=== PATIENT | female | born 1955 | race Caucasian/White ===

== ENCOUNTER 2021-04-27 13:31 | Inpatient (IN) | payer OTHER ==
[2021-04-27] MEDS ORDERED: ASPIRIN 81 MG CHEWABLE TABLETS PO ONE ×2 (14:16→15:12)
[2021-04-27] MEDS ORDERED: ASPIRIN 81 MG CHEWABLE TABLETS ONE ×2 (14:48→16:48)
[2021-04-27 15:24] LABS: BASO % 2.1 % (0-2.0); HEMATOCRIT 43.9 % (32.4-45.2); HEMOGLOBIN 15.1 GM/dL (10.7-15.3); MCH 35.4 pg (25.7-33.7); MCHC 34.4 g/dl (32.0-36.0); MEAN CELL VOLUME 102.8 fl (80-96); MEAN PLT VOLUME 8.5 fl (7.5-11.1); MONO % 8.2 % (3.8-10.2); NEUT % 56.7 % (42.8-82.8); PLATELET COUNT 238 10^3/uL (134-434); RBC 4.27 M/mm3 (3.60-5.2); WHITE BLOOD COUNT 11.6 K/mm3 (4.0-10.0)
[2021-04-27 15:43] LABS: ALBUMIN 3.9 g/dl (3.4-5.0); BLOOD UREA NITROGEN 15.8 mg/dL (7-18); MAGNESIUM 2.2 mg/dL (1.8-2.4)
[2021-04-27 15:46] LABS: CREATININE 0.8 mg/dL (0.55-1.3)
[2021-04-27 15:48] LABS: BILIRUBIN,TOTAL 0.4 mg/dL (0.2-1); TOT PROT 7.4 g/dl (6.4-8.2)
[2021-04-27 15:51] LABS: N-TERMINAL BNP 2325.7 pg/ml (5-125)
[2021-04-27] MEDS ORDERED: ATORVASTATIN CA 80 MG TABLET (FP) PO ONE (15:56)
[2021-04-27] MEDS ORDERED: ATORVASTATIN CA 80 MG TABLET (FP) ONE (16:50)
[2021-04-27] MEDS: ROSUVASTATIN CA 20 MG TABLET (FP) PO SCH (22:26)
[2021-04-28 08:28] LABS: BASO % 0.4 % (0-2.0); EOS % 2.7 % (0-4.5); HEMATOCRIT 38.8 % (32.4-45.2); HEMOGLOBIN 13.6 GM/dL (10.7-15.3); LYMPH % 44.1 % (8-40); MCH 35.8 pg (25.7-33.7); MCHC 35.1 g/dl (32.0-36.0); MEAN CELL VOLUME 102.1 fl (80-96); MEAN PLT VOLUME 8.8 fl (7.5-11.1); NEUT % 44.8 % (42.8-82.8); PLATELET COUNT 220 10^3/uL (134-434); RDW 12.7 % (11.6-15.6); WHITE BLOOD COUNT 8.9 K/mm3 (4.0-10.0)
[2021-04-28 08:40] LABS: BLOOD UREA NITROGEN 19.4 mg/dL (7-18); CALCIUM 9.1 mg/dL (8.5-10.1)
[2021-04-28 08:44] LABS: CREATININE 0.7 mg/dL (0.55-1.3)
[2021-04-28] MEDS ORDERED: PANTOPRAZOLE 40 MG TABLET ONE (09:44)
[2021-04-28] MEDS ORDERED: ASPIRIN 325 MG ENTERIC COATED TABLET (FP) ONE (09:44)
[2021-04-28] MEDS: ASPIRIN 325 MG TABLET PO SCH (09:50)
[2021-04-28] MEDS: PANTOPRAZOLE 40 MG TABLET PO SCH (09:50)
[2021-04-28] MEDS: ROSUVASTATIN CA 20 MG TABLET (FP) PO SCH (22:20)
[2021-04-29 02:04] VITALS: BMI 30.8
[2021-04-29] MEDS ORDERED: PT OWN MED DRAWER 7, Y5N ONE (06:57)
[2021-04-29] MEDS: glyBURIDE 5 MG TABLET PO SCH (06:58)
[2021-04-29] MEDS ORDERED: REGADENOSON 0.4 MG/5 ML PRE-FILLED SYRINGE IVPUSH ONE ×2 (09:37→09:45)
[2021-04-29] MEDS: ASPIRIN 325 MG TABLET PO SCH (14:44)
[2021-04-29] MEDS: PANTOPRAZOLE 40 MG TABLET PO SCH (14:44)
[2021-04-29] MEDS ORDERED: CLOPIDOGREL BISULFATE 300 MG TABLET PO ONE (16:52)
[2021-04-29] MEDS ORDERED: HEPARIN NA (PORCINE) 5,000 UNITS/ML 1ML VIAL IVPUSH PRN ×2 (16:53)
[2021-04-29] MEDS ORDERED: HEPARIN SOD,PORK IN 0.45% NACL 25,000 UNIT/500 ML INFUS.BAG IVPB SCH (17:00)
[2021-04-29] MEDS: NAPHAZOLINE/PHENIRAMINE OPHTHALMIC 15 ML BOTTLE OU SCH ×2 (17:46→21:23)
[2021-04-29 21:11] LABS: INR 0.96 (0.83-1.09); PROTHROMBIN TIME (PATIENT) 11.6 SEC (9.7-13.0)
[2021-04-29] MEDS: ROSUVASTATIN CA 20 MG TABLET (FP) PO SCH (21:23)
[2021-04-30] MEDS: NAPHAZOLINE/PHENIRAMINE OPHTHALMIC 15 ML BOTTLE OU SCH ×2 (06:08→10:07)
[2021-04-30] MEDS ORDERED: PT OWN MED DRAWER 7, Y5N ONE (06:36)
[2021-04-30] MEDS: glyBURIDE 5 MG TABLET PO SCH (06:38)
[2021-04-30] MEDS ORDERED: ASPIRIN 81 MG CHEWABLE TABLETS PO SCH (10:00)
[2021-04-30] MEDS ORDERED: LISINOPRIL 5 MG TABLET PO SCH (10:00)
[2021-04-30] MEDS ORDERED: CLOPIDOGREL BISULFATE 75 MG TABLET (FP) PO SCH (10:00)
[2021-04-30] MEDS: PANTOPRAZOLE 40 MG TABLET PO SCH (10:07)
[2021-04-30 11:29] VITALS: BP 162/78; PULSE 69; TEMP 98.3
== END 2021-04-30 11:58 | disposition short-term general hospital (02) | DRG 190 ==
LOC: JER 13:31 → INTOOBSV 16:51 → JERBED 16:51 → UNDOADMOB 16:51 → JERBED 04-28 10:01 → J4S 04-28 22:28 → OBSVTOIN 04-30 11:32
PROVIDERS: ADMIT Family Medicine; ATTEND Family Medicine
DX: I21.29 ST elevation (STEMI) myocardial infarction involving other sites (principal); E11.9 Type 2 diabetes mellitus without complications; D72.829 Elevated white blood cell count, unspecified; F17.210 Nicotine dependence, cigarettes, uncomplicated; I11.0 Hypertensive heart disease with heart failure; I51.81 Takotsubo syndrome; I50.9 Heart failure, unspecified; I25.10 Atherosclerotic heart disease of native coronary artery without angina pectoris
CPT/HCPCS: 36415; 71045-TC-FY; 78452-TC; 80048; 80053; 80061; 82550; 82962; 83036; 83735; 83880; 84439; 84443; 84484; 85025; 85610; 85730; 93005; 93010; 93017; 93306-TC; 99285-25; A9502; C9803; G0378; J2785; U0003; U0005

== ENCOUNTER 2024-06-05 07:15 | Day surgery (SDC) | payer OTHER ==
[2024-05-30 16:19] VITALS: BMI 21.4
[2024-06-05] MEDS ORDERED: PROPOFOL 20 ML ONE ×2 (08:11)
[2024-06-05 08:21] VITALS: RESP 18
[2024-06-05 09:59] VITALS: TEMP 97.1
[2024-06-05 10:17] VITALS: BP 132/94; PULSE 78
== END 2024-06-05 10:21 | disposition home or self-care (01) ==
LOC: FASU-ENDO 07:15
PROVIDERS: ATTEND Internal Medicine Gastroenterology
PROC: 0DBL8ZX Excision of Transverse Colon, Via Natural or Artificial Opening Endoscopic, Diagnostic (ICD-10-PCS; principal; 2024-06-05 09:36)
DX: Z12.11 Encounter for screening for malignant neoplasm of colon (principal); D12.3 Benign neoplasm of transverse colon; K57.30 Diverticulosis of large intestine without perforation or abscess without bleeding; Z86.0100 Personal history of colon polyps, unspecified
CPT/HCPCS: 82962; 88305-TC

== ENCOUNTER 2024-08-08 14:02 | Emergency (ER) | payer OTHER ==
[2024-08-08 16:13] VITALS: TEMP 98.1; BMI 25.6
[2024-08-08 16:13] LABS: BASO % 0.4 % (0-2.0); EOS % 1.8 % (0-4.5); HEMATOCRIT 41.9 % (32.4-45.2); HEMOGLOBIN 14.1 GM/dL (10.7-15.3); LYMPH % 38.1 % (8-40); MCH 33.8 pg (25.7-33.7); MCHC 33.6 g/dl (32.0-36.0); MEAN CELL VOLUME 100.5 fl (80-96); MEAN PLT VOLUME 7.8 fl (7.5-11.1); MONO % 5.6 % (3.8-10.2); NEUT % 54.1 % (42.8-82.8); PLATELET COUNT 206 10^3/uL (134-434); RBC 4.17 M/mm3 (3.60-5.2); RDW 13.6 % (11.6-15.6); WHITE BLOOD COUNT 8.8 K/mm3 (4.0-10.0)
[2024-08-08 16:16] LABS: VENOUS O2 SATURATION 24.2 % (70-80); VENOUS PCO2 47.6 mmHg (38-52); VENOUS PH 7.384 (7.310-7.410)
[2024-08-08 16:21] LABS: INR 0.93 (0.83-1.09); PROTHROMBIN TIME (PATIENT) 10.7 SEC (9.7-13.0)
[2024-08-08 16:23] LABS: ACTIVATED PTT 36.6 SECONDS (25.2-36.5)
[2024-08-08] MEDS: MECLIZINE HCL 25 MG TABLET (FP) PO ONE (16:23)
[2024-08-08] MEDS ORDERED: MECLIZINE HCL 25 MG TABLET (FP) ONE (16:24)
[2024-08-08 16:30] LABS: URINE APPEARANCE CLEAR; URINE BILIRUBIN NEGATIVE (NEGATIVE); URINE COLOR YELLOW; URINE GLUCOSE (UA) 3+ (NEGATIVE); URINE KETONE TRACE (NEGATIVE); URINE LEUK ESTERASE NEGATIVE (NEGATIVE); URINE NITRITE NEGATIVE (NEGATIVE); URINE PROTEIN NEGATIVE (NEGATIVE); URINE UROBILINOGEN 0.2 mg/dL (0.2-1.0)
[2024-08-08 16:34] LABS: EPI CELLS 11.9 /uL (0-25.1); HYALINE CASTS 0.13 /uL (0-3.1); URINE RBC 6.7 /uL (0-23.9); URINE WBC 7.8 /uL (0-25.8)
[2024-08-08 16:49] LABS: POTASSIUM 3.5 mmol/L (3.5-5.1)
[2024-08-08 16:51] LABS: CALCIUM 9.8 mg/dL (8.5-10.1)
[2024-08-08 16:52] LABS: BLOOD UREA NITROGEN 22.1 mg/dL (7-18); MAGNESIUM 2.6 mg/dL (1.8-2.4)
[2024-08-08 16:55] LABS: CREATININE 0.9 mg/dL (0.55-1.3)
[2024-08-08 16:56] LABS: BILIRUBIN,TOTAL 0.4 mg/dL (0.2-1); TOT PROT 7.4 g/dl (6.4-8.2)
[2024-08-08] MEDS ORDERED: amLODIPine BESYLATE 5 MG TABLET (FP) ONE (17:07)
[2024-08-08] MEDS ORDERED: CARVEDILOL 6.25 MG TABLET (FP) ONE (17:07)
[2024-08-08] MEDS: amLODIPine BESYLATE 5 MG TABLET (FP) PO ONE (17:09)
[2024-08-08] MEDS: CARVEDILOL 12.5 MG TABLET (FP) PO ONE (17:10)
[2024-08-08 17:11] VITALS: RESP 16
[2024-08-08 18:02] VITALS: BP 160/80
[2024-08-08 18:14] VITALS: PULSE 81
== END 2024-08-08 18:15 | disposition home or self-care (01) ==
LOC: JER 14:02
DX: R42 Dizziness and giddiness (principal)
CPT/HCPCS: 36415; 71045-TC-FY; 80053; 81003; 82803; 83735; 84484; 85025; 85610; 85730; 87086; 93005; 93010; 99285-25